=== PATIENT | male | born 1965 | race Caucasian/White ===

== ENCOUNTER 2021-12-05 12:06 | Inpatient (IN) | payer OTHER ==
[2021-12-05 12:23] VITALS: BMI 22.8
[2021-12-05 13:38] LABS: INR 0.98 (0.83-1.09); PROTHROMBIN TIME (PATIENT) 11.3 SEC (9.7-13.0)
[2021-12-05 13:54] LABS: HEMATOCRIT 41.9 % (35.4-49); HEMOGLOBIN 14.8 G/dL (11.7-16.9); MCH 32.1 pg (25.7-33.7); MCHC 35.4 g/dl (32.0-35.9); MEAN CELL VOLUME 90.6 fl (80-96); MEAN PLT VOLUME 8.5 fl (7.5-11.1); PLATELET COUNT 221.2 10^3/uL (134-434); RBC 4.62 10^6/uL (4.00-5.60); RDW 14.3 % (11.9-15.9); WHITE BLOOD COUNT 4.6 10^3/uL (4.0-10.8)
[2021-12-05 13:56] LABS: ALBUMIN 4.3 g/dl (3.4-5.0); BILIRUBIN,TOTAL 0.6 mg/dl (0.2-1); CREATININE 0.9 mg/dl (0.55-1.3); TOT PROT 6.9 g/dl (6.4-8.2)
[2021-12-05] MEDS ORDERED: ACETAMINOPHEN 325 MG TABLET (FP) ONE (17:37)
[2021-12-05] MEDS ORDERED: ACETAMINOPHEN 325 MG TABLET (FP) PO ONE (18:01)
[2021-12-05] MEDS ORDERED: ACETAMINOPHEN 325 MG TABLET (FP) PO PRN (22:51)
[2021-12-05] MEDS ORDERED: ACETAMINOPHEN 1000 MG/100 ML BAG IVPB ONE (23:16)
[2021-12-05] MEDS ORDERED: CYCLOBENZAPRINE HCL 5 MG TABLET PO PRN (23:18)
[2021-12-05] MEDS ORDERED: diphenhydrAMINE HCL 50 MG CAPSULE PO PRN (23:34)
[2021-12-05] MEDS ORDERED: diphenhydrAMINE HCL 25 MG CAPSULE (FP) PO PRN (23:52)
[2021-12-06] MEDS ORDERED: MELATONIN 5 MG TABLETS PO PRN (02:40)
[2021-12-06] MEDS ORDERED: TAMSULOSIN HCL 0.4 MG CAP PO SCH (08:30)
[2021-12-06 09:00] LABS: BASO % 0.7 % (0-2.0); EOS % 3.8 % (0-4.5); HEMATOCRIT 44.1 % (35.4-49); HEMOGLOBIN 14.9 GM/dL (11.7-16.9); MCH 30.9 pg (25.7-33.7); MCHC 33.7 g/dl (32.0-35.9); MEAN CELL VOLUME 91.8 fl (80-96); MEAN PLT VOLUME 8.7 fl (7.5-11.1); MONO % 9.5 % (3.8-10.2); PLATELET COUNT 238 10^3/uL (134-434); RBC 4.81 M/mm3 (4.00-5.60); RDW 13.6 % (11.9-15.9); WHITE BLOOD COUNT 3.8 K/mm3 (4.0-10.0)
[2021-12-06 09:19] LABS: CHLORIDE 105 mmol/L (98-107); SODIUM 139 mmol/L (136-145)
[2021-12-06 09:22] LABS: ANION GAP 3 MMOL/L (8-16); CO2 31 mmol/L (21-32); GLUCOSE,RANDOM 97 mg/dL (74-106)
[2021-12-06 09:25] LABS: CREATININE 0.9 mg/dL (0.55-1.3)
[2021-12-06] MEDS ORDERED: DEXAMETHASONE SOD PHOSPHATE 10 MG/1 ML VIAL IVPUSH SCH (10:00)
[2021-12-06] MEDS ORDERED: ASPIRIN COATED 81 MG TABLET.EC PO SCH (10:00)
[2021-12-06] MEDS ORDERED: CYCLOBENZAPRINE HCL 5 MG TABLET PO SCH (10:00)
[2021-12-06 11:47] LABS: MAGNESIUM 2.2 mg/dL (1.8-2.4)
[2021-12-06 12:08] LABS: LDH 149 U/L (87-246)
[2021-12-06 14:23] VITALS: BP 113/72; PULSE 63; TEMP 98.4
[2021-12-06] MEDS ORDERED: MELATONIN 5 MG TABLETS PO SCH (22:00)
== END 2021-12-06 17:05 | disposition home or self-care (01) | DRG 177 ==
LOC: FER 12:06 → J4S 21:20
PROVIDERS: ADMIT Internal Medicine; ATTEND Nurse Practitioner Acute Care
DX: U07.1 COVID-19 (principal); J96.00 Acute respiratory failure, unspecified whether with hypoxia or hypercapnia; N40.0 Benign prostatic hyperplasia without lower urinary tract symptoms; R07.89 Other chest pain
CPT/HCPCS: 36415; 71046-TC-FY; 80048; 80053; 82728; 83615; 83735; 84484; 85025; 85379; 85610; 85730; 86140; 93005; 93306-TC; 99285-25; C9803-CS; J1100; U0003; U0005